=== PATIENT | male | born 1985 | race Caucasian/White ===

== ENCOUNTER 2019-02-02 20:51 | Inpatient (IN) ==
[2019-02-02 21:24] LABS: Appearance Urine Clear (Clear); Bilirubin Urine Negative (Negative); Blood Urine Negative (Negative); Color Urine Dark Yellow; Glucose Urine UA Negative (Negative); Ketones Urine Trace (Negative); Leukocyte Esterase Urine Negative (Negative); Nitrite Urine Negative (Negative); Protein Urine Negative (Negative); Specific Gravity Urine 1.027 (1.000-1.030); Urobilinogen Urine Negative (Negative)
[2019-02-02 21:37] LABS: Basophils # (auto) 0.02 K/uL (0-0.2); Basophils % (auto) 0.3 %; Eosinophils # (auto) 0.08 K/uL (0-0.5); Hematocrit (blood only) 41.8 % (42-52); Hemoglobin 14.3 g/dL (14.0-18.0); Immature Granulocytes # (auto) 0.01 K/uL (0.00-0.02); Immature Granulocytes % (auto) 0.1 %; Lymphocytes # (auto) 3.33 K/uL (1.2-3.4); Lymphocytes % (auto) 42.9 %; Mean Corpuscular Hemoglobin 31.4 pg (25-34); Mean Corpuscular Hgb Conc 34.2 g/dL (32-36); Mean Corpuscular Volume 91.9 fL (80-100); Mean Platelet Volume 9.9 fL (7.4-10.4); Monocytes # (auto) 0.68 K/uL (0.11-0.59); Monocytes % (auto) 8.8 %; Neutrophils # (auto) 3.65 K/uL (1.4-6.5); Neutrophils % (auto) 46.9 %; Platelet Count 230 K/uL (130-400); RDW Coefficient of Variation 12.9 % (11.5-14.5); RDW Standard Deviation 43.2 fL (36.4-46.3); Red Blood Count 4.55 M/uL (4.7-6.1); White Blood Count 7.77 K/uL (4.8-10.8)
[2019-02-02 21:51] LABS: Amphetamines+Metham, Urine Neg (Neg); Barbiturates, Urine Neg (Neg); Benzodiazepine, Urine Neg (Neg); Cocaine, Urine Neg (Neg); MDMA (Ecstacy), Urine Neg (Neg); Methadone, Urine Neg (Neg); Opiate, Urine Neg (Neg); Phencyclidine, Urine Neg (Neg)
[2019-02-02 21:59] LABS: Albumin Level 4.3 gm/dl (3.4-5.0); BUN Creatinine Ratio 8.6 (10-20); Calcium 9.3 mg/dl (8.5-10.1); Creatinine Clr Calc Pharmacy 112.7 ml/min; Est GFR (African American) 111.2; Est GFR (Non-African American) 95.9; Potassium 3.8 mmol/L (3.5-5.1)
[2019-02-02 22:03] LABS: Acetaminophen < 2 ug/ml (10-30); Salicylate < 1.7 mg/dl (2.8-20)
[2019-02-02 22:05] LABS: Albumin Globulin Ratio 1.1 (0.9-2); Bilirubin,Total 0.2 mg/dl (0.2-1); Thyroid Stimulating Hormone 0.762 uIu/ml (0.300-4.500); Total Protein 8.3 gm/dl (6.4-8.2)
--- NOTE | 2019-02-02 22:08 | Emergency Department Note ---
Entered by Jodie Hinojosa acting as a scribe for Frantz Jones MD History of Present Illness General Chief complaint: Mental Health Evaluation Stated complaint: MENTAL HEALTH Time Seen by Provider: 02/02/19 21:15 Source: patient History of Present Illness Onset (ago): month(s) 1 Location: head (suicidal ideation) Severity: similar to prior episodes Pain Consistency: + other (worsening) Associated symptoms: + denies other symptoms (hearing voices, abdominal pain, and swelling in legs); no nausea/vomiting The patient is a 33 year-old white M w/ PMHx of suicidal ideations who presents to the ED w/ CC of suicidal ideations beginning 1 month ago. The HPI was initially provided by the psychiatric telehealth case manager. She states that the patient called the suicide hotline and told them that he wanted to get a gun to shoot himself. The patient confirms this initial HPI. The patient adds that back in high school, he wanted to hurt himself with a knife. He notes that he is on the medication Lexapro, prescribed by Dr. Salinas. He denies any recent medication changes. He denies hearing voices, abdominal pain, nausea, and swelling in his legs. He adds that he is experiencing normal urination and bowel movements. He notes that his work is fine. He states that he uses alcohol occasionally. Home Medications Home Medications Medication Instructions Recorded Confirmed Type Ativan 1 mg PO TID PRN 02/02/19 02/02/19 History aripiprazole 5 mg PO DAILY 02/02/19 02/02/19 History escitalopram oxalate 20 mg PO DAILY 02/02/19 02/02/19 History Allergies Allergy/AdvReac Type Severity Reaction Status Date / Time No Known Allergies Allergy Unknown Verified 03/07/14 14:54 Past Med/Surg History Medical History MDD (major depressive disorder) Suicidal ideations (Chronic) Family History Other No significant family history Social History Preferred Language: Indonesian Feels Safe at Home: Yes Smoking Status: Never smoker Review of Systems See HPI for pertinent positives & negatives. and A total of 10 systems reviewed and were otherwise negative Physical Exam Vital Signs Vital Signs - 24 hr 02/02/19 20:57 02/02/19 23:23 Temperature 36.8 C Temperature Source Oral Sepsis Recent Fever Within 48 Hours No Sepsis Action Taken by Nursing No Action Required Pulse Rate 95 H Pulse Rate [Finger] 74 Pulse Rhythm Regular Pulse Rhythm [Finger] Regular Pulse Strength Normal Pulse Strength [Finger] Normal Respiratory Rate 20 16 Respiratory Effort / Characteristics Non-Labored Spontaneous Non-Labored Spontaneous Respiratory Depth Normal Normal Respiratory Pattern Regular Regular Blood Pressure 133/100 Blood Pressure [Right Arm] 145/80 H Blood Pressure Mean 111 Blood Pressure Mean [Right Arm] 101 Blood Pressure Position Sitting Blood Pressure Position [Right Arm] Sitting Pulse Oximetry 100 96 Oxygen Delivery Method Room Air Room Air GENERAL: Well nourished, NAD, non-toxic. EYE EXAM: Normal conjunctiva. PERRL, no anisocoria and EOM's grossly intact w/o pain. OROPHARYNX: Moist mucous membranes. Grossly normal dentition. NECK: Supple, no nuchal rigidity, no adenopathy, non-tender. No signs of meningismus. LUNGS: Clear to auscultation. Normal chest wall mechanics. HEART: NSR, no MRG. ABDOMEN: Abdomen soft, non-tender, normo-active bowel sounds, no masses, no rebound or guarding. BACK: No CVA TTP. SKIN: No rashes and no bruising. UPPER EXTREMITIES: Upper extremities are grossly normal. LOWER EXTREMITIES: No pitting edema. No calf pain. NEURO EXAM: A&O x3, cranial nerves II-XII grossly intact, normal speech, moves all 4 extremities on command w/o issue. PSYCH: Positive SI, no HI, no AVH, depressed mood. Course 2124: The patient was evaluated in room A5. A complete history and physical exam was performed. 2227: The patient has been accepted to [address] [place] [address]. Administered Medications Discontinued Medications Aripiprazole (Abilify) 5 mg PO NOW STA Stop: 02/02/19 23:14 Last Admin: 02/02/19 23:38 Dose: 5 mg Documented by: [id number] Escitalopram Oxalate (Lexapro Tab) 20 mg PO NOW STA Stop: 02/02/19 23:14 Last Admin: 02/02/19 23:38 Dose: 20 mg Documented by: [id number] Medical Decision Making Differential Diagnosis Differential diagnosis: Etiologies such as mood disorder, infection, hypoglycemia, electrolyte abnormalities, cardiac sources, intracerebral event, toxicologic, neurologic, as well as others were entertained. Medical Records Attestation: I reviewed the patient's medical records. Home Medications Current Medication List: was personally reviewed by me Laboratory Data Attestation: I reviewed the patient's lab results. Result diagrams: 02/02/19 21:22 02/02/19 21:22 Lab Results 02/02/19 02/02/19 02/02/19 Range/Units 21:00 21:00 21:22 WBC 7.77 (4.8-10.8) K/uL RBC 4.55 L (4.7-6.1) M/uL Hgb 14.3 (14.0-18.0) g/dL Hct 41.8 L (42-52) % MCV 91.9 (80-100) fL MCH 31.4 (25-34) pg MCHC 34.2 (32-36) g/dL RDW Std Deviation 43.2 (36.4-46.3) fL RDW Coeff of Lc 12.9 (11.5-14.5) % Plt Count 230 (130-400) K/uL MPV 9.9 (7.4-10.4) fL Immature Gran % (Auto) 0.1 % Neut % (Auto) 46.9 % Lymph % (Auto) 42.9 % [place] % (Auto) 8.8 % Eos % (Auto) 1.0 % Baso % (Auto) 0.3 % Immature Gran # (Auto) 0.01 (0.00-0.02) K/uL Neut # (Auto) 3.65 (1.4-6.5) K/uL Lymph # (Auto) 3.33 (1.2-3.4) K/uL [place] # (Auto) 0.68 H (0.11-0.59) K/uL Eos # (Auto) 0.08 (0-0.5) K/uL Baso # (Auto) 0.02 (0-0.2) K/uL Sodium (136-145) mmol/L Potassium (3.5-5.1) mmol/L Chloride (98-107) mmol/L Carbon Dioxide (21-32) mmol/L Anion Gap (3-11) BUN (7-18) mg/dl Creatinine (0.6-1.4) mg/dl Est Cr Clr Drug Dosing ml/min Est GFR ( Amer) Est GFR (Non-Af Amer) BUN/Creatinine Ratio (10-20) Glucose (70-99) mg/dl Calcium (8.5-10.1) mg/dl Total Bilirubin (0.2-1) mg/dl AST (15-37) U/L ALT (12-78) U/L Alkaline Phosphatase (45-117) U/L Total Protein (6.4-8.2) gm/dl Albumin (3.4-5.0) gm/dl Globulin (2.5-4.0) gm/dl Albumin/Globulin Ratio (0.9-2) TSH (0.300-4.500) uIu/ml Specimen Hemolysis Urine Color Dark Yellow Urine Appearance Clear (Clear) Urine pH 7.0 (4.5-7.5) Ur Specific [place] 1.027 (1.000-1.030) Urine Protein Negative (Negative) Urine Glucose (UA) Negative (Negative) Urine Ketones Trace H (Negative) Urine Blood Negative (Negative) Urine Nitrite Negative (Negative) Urine Bilirubin Negative (Negative) Urine Urobilinogen Negative (Negative) Ur Leukocyte Esterase Negative (Negative) Salicylates (2.8-20) mg/dl Urine Opiates Screen Neg (Neg) Ur Methadone, Qual Neg (Neg) Acetaminophen (10-30) ug/ml Urine Barbiturates Neg (Neg) Ur Phencyclidine (PCP) Neg (Neg) U Amphetamin/Meth Scrn Neg (Neg) MDMA (Ecstasy) Screen Neg (Neg) U Benzodiazepines Scrn Neg (Neg) Ur Cocaine Metabolite Neg (Neg) U Marijuana (THC) Screen Neg (Neg) Ethyl Alcohol mg/dL (0-3) mg/dl 02/02/19 02/02/19 02/02/19 Range/Units 21:22 21:22 21:22 WBC (4.8-10.8) K/uL RBC (4.7-6.1) M/uL Hgb (14.0-18.0) g/dL Hct (42-52) % MCV (80-100) fL MCH (25-34) pg MCHC (32-36) g/dL RDW Std Deviation (36.4-46.3) fL RDW Coeff of Lc (11.5-14.5) % Plt Count (130-400) K/uL MPV (7.4-10.4) fL Immature Gran % (Auto) % Neut % (Auto) % Lymph % (Auto) % [place] % (Auto) % Eos % (Auto) % Baso % (Auto) % Immature Gran # (Auto) (0.00-0.02) K/uL Neut # (Auto) (1.4-6.5) K/uL Lymph # (Auto) (1.2-3.4) K/uL [place] # (Auto) (0.11-0.59) K/uL Eos # (Auto) (0-0.5) K/uL Baso # (Auto) (0-0.2) K/uL Sodium 140 (136-145) mmol/L Potassium 3.8 (3.5-5.1) mmol/L Chloride 104 (98-107) mmol/L Carbon Dioxide 29 (21-32) mmol/L Anion Gap 7.0 (3-11) BUN 9 (7-18) mg/dl Creatinine 1.01 (0.6-1.4) mg/dl Est Cr Clr Drug Dosing 112.7 ml/min Est GFR ( Amer) 111.2 Est GFR (Non-Af Amer) 95.9 BUN/Creatinine Ratio 8.6 L (10-20) Glucose 106 H (70-99) mg/dl Calcium 9.3 (8.5-10.1) mg/dl Total Bilirubin 0.2 (0.2-1) mg/dl AST 36 (15-37) U/L ALT 61 (12-78) U/L Alkaline Phosphatase 76 (45-117) U/L Total Protein 8.3 H (6.4-8.2) gm/dl Albumin 4.3 (3.4-5.0) gm/dl Globulin 4.0 (2.5-4.0) gm/dl Albumin/Globulin Ratio 1.1 (0.9-2) TSH 0.762 (0.300-4.500) uIu/ml Specimen Hemolysis Urine Color Urine Appearance (Clear) Urine pH (4.5-7.5) Ur Specific [place] (1.000-1.030) Urine Protein (Negative) Urine Glucose (UA) (Negative) Urine Ketones (Negative) Urine Blood (Negative) Urine Nitrite (Negative) Urine Bilirubin (Negative) Urine Urobilinogen (Negative) Ur Leukocyte Esterase (Negative) Salicylates < 1.7 L (2.8-20) mg/dl Urine Opiates Screen (Neg) Ur Methadone, Qual (Neg) Acetaminophen < 2 L (10-30) ug/ml Urine Barbiturates (Neg) Ur Phencyclidine (PCP) (Neg) U Amphetamin/Meth Scrn (Neg) MDMA (Ecstasy) Screen (Neg) U Benzodiazepines Scrn (Neg) Ur Cocaine Metabolite (Neg) U Marijuana (THC) Screen (Neg) Ethyl Alcohol mg/dL < 3.0 (0-3) mg/dl Blood Pressure Blood Pressure Findings: Elevated blood pressure Blood Pressure Disposition: further management by hospitalist MDM Narrative The patient is a 33 year-old white M w/ PMHx of suicidal ideations who presents to the ED w/ CC of suicidal ideations beginning 1 month ago. Patient was seen and evaluated the bedside. The patient did present with concern for using a gun to shoot himself. The patient is a prior history of SI with attempts. The patient endorses SI but no HI or AVH. The patient did a blood work completed and was deemed medically clear. The patient was accepted to [facility]. the patient was admitted for inpatient psychiatric treatment. Impression & Plan Suicidal ideations, Depression Discharge Plan Visit Data Chief Complaint: Mental Health Evaluation Stated Complaint: MENTAL HEALTH ED Provider: Frantz Jones Discharge Problem: Suicidal ideations, Depression Patient Disposition: Admitted As Inpatient Discharge Instructions Interventions: ED Discharge Assessment Last Done: 02/02/19 23:57 Discharge Problem: Depression Qualifiers: Depression Type: unspecified Qualified Code(s): F32.9 - Major depressive disorder, single episode, unspecified The mandyibe's documentation has been prepared under my direction and personally reviewed by me in its entirety. I confirm that the note above accurately reflects all work, treatment, procedures, and medical decision making performed by me.
[2019-02-02] MEDS ORDERED: ESCITALOPRAM OXALATE 20 MG TAB PO STA (23:13)
[2019-02-02] MEDS ORDERED: ARIPiprazole 5 MG TAB PO STA (23:13)
[2019-02-02 23:24] VITALS: O2SAT 96
[2019-02-03] MEDS ORDERED: ACETAMINOPHEN 325 MG TAB PO PRN (00:52)
[2019-02-03] MEDS ORDERED: SODIUM CHLORIDE 0.65% NA SOLN 45 ML (OCEAN) PRN (00:52)
[2019-02-03] MEDS ORDERED: MAGNESIUM HYDROXIDE SUSP 30 ML UDC PO PRN (00:52)
[2019-02-03] MEDS ORDERED: BISMUTH SUBSALICYLATE PER ML OMNICELL CHARGE PO PRN (00:52)
[2019-02-03] MEDS ORDERED: ALUMINUM/MAGNESIUM SUSP 30 ML UDC PO PRN (00:52)
--- NOTE | 2019-02-03 12:07 | History & Physical ---
Date of Service February 03, 2019 Impression / Recommendations Impression 33-year-old gentleman with history of depression and anxiety since high school. Unfortunately it sounds that he has felt unaccepted and perhaps defective since that time associated with his sexual orientation and the treatment that he has received from others. He denies feeling intrinsically guilty or self-critical however he does demonstrate strong rejection sensitivity and has developed some avoidance behaviors suggesting social anxiety component. Additionally he experiences panic attacks which has included some agoraphobic behavior with difficulty attending his work shifts related to his anxiety. He tends to ruminate about the past and second guesses decision making. While he describes primarily depression he also describes intervals of several hours when he feels elevated above a normal mood range and a diagnosis of cyclothymic mood disorder should be entertained. Acute stressors include increased work schedule, decreased access to parents, and possibly 3-year anniversary of of gra ndmother pending. He reports some benefit from historical Lexapro and Abilify treatment from PCP. He has not participated in psychotherapy. Secondary to worsening suicidal impulse to shoot himself, inpatient psychiatric hospitalization is presently the least restrictive and most appropriate level of care for provision of safety while he receives additional treatment. (1) MDD (major depressive disorder): 01/26/2019 -Patient admitted on a voluntary status on suicide checks to the locked environment of the behavioral health unit -He will be expected to participate in unit programming as appropriate -Patient will require outpatient psychotherapy and psychiatric referrals prior to discharge -Guns are locked and have been secured by parents at home -As Celexa and Lexapro have been insufficiently effective, will reduce Lexapro to 10 mg tonight and then discontinue and substitute Zoloft titration as alternative. He will start Zoloft 25 mg today, 50 mg tomorrow, then 100 mg daily and will continue titration ending indication and tolerability. Common risks and benefits of the SSRI were reviewed and patient accepted the intervention. -As he perceives historically some therapeutic benefit from the Abilify augmentation will defer any changes to that for the time being. Lab order for fasting lipid pane and glucose for metabolic monitoring on atypical antipsychotic. Aims 0 today -Psychoeducation provided regarding possibility of underlying mild cyclic mood disorder. For mood augmentation, discussed risks and benefits of Lamictal titration which may help with some of his emotional reactivity as well. This included discussion of risk for Bear-Angel syndrome and need for regular medication compliance. Patient was agreeable and will start Lamictal 25 mg nightly titrating in the standard fashion Present on Admission?: Yes (2) Suicidal ideations: 02/03/2019 -As above, patient admitted on suicide checks to the controlled environment of the behavioral health unit where he will receive pharmacotherapy and psychotherapy. At time of admission he denies intent for self-harm and able to convincingly contract for safety in the hospital however he is not able to contract for safety outside of the hospital. -He identifies his family, particularly his mother, as strongly protective against self injury. He has no history of self-harm but does have a history of one instance of para suicidal behavior Present on Admission?: Yes (3) Generalized anxiety disorder: 02/03/2019 -Mixed anxiety symptomatology with free-floating excessive worry, features of social anxiety and panic attacks -Zoloft trial as above -May get some benefit from the Lamictal titration off label Present on Admission?: Yes Inventory Assets Strengths: He is help seeking and compliant with his medications Needs: Provision for safety and medication adjustment Risk Factors Assessment Male: Yes : Yes Do You Have Access To A Gun?: No (Guns at home but secured by parents) Health Problems: No Mental Health Diagnoses: Yes Substance Use Disorders: No Previous Attempt: No Family History of Suicide: No Previous Psychiatric Hospitalization: No Hopelessness: Yes Smoker: No Protective Factors Assessment Anglican Beliefs: No : No Responsible for Young Children: No Employed: No ([employer] @ [employer]) Stable Relationships: Yes (Parents) Supportive Family: Yes Psychiatric History Identifying Data KENIA ANN is a 33-year-old M who currently lives locally with parents. He has a history of depression treated by his PCP, and was admitted on 02/02/19 23:38 on a 201 voluntary commitment for worsening depression and suicidal ideation. he was admitted through the [facility] ER. Chief Complaint "I've been feeling hopeless but I do not want to do it". History of Present Illness Patient presented to the ER last evening complaining of worsening suicidal ideations beginning about 1 month ago. Called the suicide hotline and told that he wanted to get a gun to shoot himself which he confirmed in the ER. He reported that he was taking his prescribed psychotropics from his PCP, Abilify 5 mg daily and Lexapro 20 mg daily. Apparently he also has an Ativan 1 mg 3 times daily as needed prescription that he has been using infrequently. He was unable to identify acute stressors in the ER. He was medically cleared and accepted for voluntary admission to the behavioral health unit. On interview today, psychosocial stressors coming to the fore include a history of bullying in high school for his sexual orientation, increasing his work schedule from 25 hours weekly at [employer] to 40 hours weekly in effort to secure health insurance which not only increases stress but also has been a trigger for interpersonal social anxiety and has diminished his access to his parents who are his primary source of support as they are typically in bed by the time that he gets off of his 12-9 shift. While he denies negative self-image he does describe a lot of reflexive worry that others are judging him unfavorably to the point that he tends to avoid social contact. He does a great deal of rumination and describes second guessing historical decisions wondering if things could have been different. He describes onset of anxiety in middle school which he seems to attribute to his homosexuality and bullying at school. He describes a lot of free-floating anxiety, difficulty concentrating, and sleep latency associated with anxiety. He describes panic attacks that are triggered by situational stressors such as work and not out of the blue. On he has been treated with his antidepressants for 2-3 years by PCP which she found initially helpful but recently insufficiently effective. Energy has been low, interest declining, sleep often times latent estimating 4-5 hours nightly. He denies crying spells. Appetite variable. He reports a 50 pound weight gain in the last 2-3 years. Irritability can be significant at times but denies violence. He has experienced worsening suicidal ideation for the past month feeling more hopeless and fantasizing about shooting himself with a gun. He denies any acts of furtherance. He expresses to me that he does not want to hurt himself and maintains hopefulness that he can feel better which is why he has reached out for help. He denies a history of suicide attempt however he did have some para- suicidal behavior around the age of 13 when he held a knife to his chest when home alone which she later disclosed to a friend and saw a guidance counselor x2 but felt it was of no benefit (states he felt the guidance counselor did not take him seriously. "Like it was a big joke to him.") While he denies symptoms of florid kelly he does report times when he feels elevated, talkative, speech more rapid, more likely to spend money, more energized, thoughts racing however these moments tend to last hours and not days. He denies a history of hallucinations or delusions. He denies a history of dissociation. He denies a historical diagnosis or concern for ADHD in childhood. Past Psychiatric History Previous Psych History: No prior psychiatric contact. First sought treatment from PCP around 2015 Current Psychiatric Diagnosis: Depression Outpatient Services: None Previous Psych Admissions: None Do You Have Access To A Gun?: No (Guns at home but secured by parents) History of Previous Suicide Attempt: No (Held a knife to chest age 13. Denies history of self injury) Describe Attempts in the Past: Ideations, no hx of attempts Past Medication Trials: First medication Celexa converted to Lexapro secondary to lack of efficacy. Abilify started approximately 2016 for mood augmentation by PCP Past Head Trauma/Neuro History History of Concussion/Seizure: No Allergies Allergy/AdvReac Type Severity Reaction Status Date / Time No Known Allergies Allergy Unknown Verified 03/07/14 14:54 Home Medications Home Medications Medication Instructions Recorded Confirmed Type aripiprazole 5 mg PO HS 02/02/19 02/04/19 History escitalopram oxalate 20 mg PO HS 02/02/19 02/04/19 History lorazepam 1 mg PO TID PRN 02/02/19 02/04/19 History Family History Family History of: Depression (He believes his mother is treated with Celexa) Family Mental Health History Comment: mother Alcohol History Hx of Alcohol Use Over the Past 12 Months: Yes (social, not often) AUDIT Total Score: 2 Smoking Use Have You Smoked or Used Tobacco Products in the Last 30 Days: No Smoking Status: Never smoker Substance History Hx of Prescription Med Misuse Over the Past 12 Months: No Hx of Over the Counter Med Misuse Over the Past 12 Months: No Hx of Inhalent Misuse Over the Past 12 Months: No Hx of Organic Substance Use Over the Past 12 Months: No Hx of Illegal Substances/Street Drug Use Over Past 12 Months: No Problems as a Result of Past Substance Use: None Identified Personal History Living Arrangements: Home (Lives with parents) Childhood: Describes supportive parents. 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 Has been with [employer] 17+ years.) Marital Status: Single (Reports last relationship approximately 3 years ago and did poorly) Number Of Children: 0 Beliefs That Will Affect Care: None Current Legal Problems: No Hx Legal Problems: No Hx Traumatic Life Events: Yes Psychological Trauma History Comment: Bullying in school of grandmother was a large support for him approximately 2015 Patient History Medical History MDD (major depressive disorder) (Acute) Suicidal ideations (Acute) Surgical History History of appendectomy (Resolved) Family History Other No significant family history Social History Preferred Language: Bermudian Communication Ability: Effective Mother Baby Rn Required: No Beliefs That Will Affect Care: None Feels Safe at Home: Yes Smoking Status: Never smoker Review of Systems Constitutional: as per Subjective / HPI Respiratory: no problem reported Cardiovascular: no problem reported Gastrointestinal: + nausea Neurologic: no problem reported Psychiatric: as per Subjective / HPI 10 point review of systems otherwise negative except as per HPI Physical Exam Psychiatric: Orientation: alert, oriented x 3 and cooperative Apperance: appropriately dressed and + disheveled Eye Contact: + fair eye contact M otor Behavior: steady gait and station and no abnormal motor movements Speech: normal rate/rhythm/volume of speech; no pressured speech Affect: + depressed affect, + anxious affect and mood congruent with affect Mood: + depressed mood Thought Process: goal directed thought process and linear/logical thought process Thought Content: reality based without delusions and + hopelessness Suicidal Thoughts: denies suicidal intent; + reports suicidal thoughts and + reports suicidal plan Homicidal Thoughts: denies homicidal thoughts Hallucinations: no auditory hallucinations, no visual hallucinations and no tactile hallucinations Cognition: recent memory grossly intact, remote memory grossly intact, attention grossly intact and language grossly intact Estimated Intelligence: average estimated intelligence Insight: + fair insight Judgement: + fair judgement Vital Signs (Past 24 Hours): Last Vital Signs Temp 36.6 C 02/03/19 06:56 Pulse 73 02/03/19 06:57 Resp 18 02/03/19 06:56 BP 120/79 02/03/19 06:57 Pulse Ox 96 02/02/19 23:23 Results & Data Laboratory Results Laboratory Results - last 24 hr 02/02/19 02/02/19 02/02/19 21:00 21:00 21:22 WBC 7.77 RBC 4.55 L Hgb 14.3 Hct 41.8 L MCV 91.9 MCH 31.4 MCHC 34.2 RDW Std Deviation 43.2 RDW Coeff of Lc 12.9 Plt Count 230 MPV 9.9 Immature Gran % (Auto) 0.1 Neut % (Auto) 46.9 Lymph % (Auto) 42.9 [place] % (Auto) 8.8 Eos % (Auto) 1.0 Baso % (Auto) 0.3 Immature Gran # (Auto) 0.01 Neut # (Auto) 3.65 Lymph # (Auto) 3.33 Valencia # (Auto) 0.68 H Eos # (Auto) 0.08 Baso # (Auto) 0.02 Sodium Potassium Chloride Carbon Dioxide Anion Gap BUN Creatinine Est Cr Clr Drug Dosing Est GFR ( Amer) Est GFR (Non-Af Amer) BUN/Creatinine Ratio Glucose Calcium Total Bilirubin AST ALT Alkaline Phosphatase Total Protein Albumin Globulin Albumin/Globulin Ratio TSH Specimen Hemolysis Urine Color Dark Yellow Urine Appearance Clear Urine pH 7.0 Ur Specific [place] 1.027 Urine Protein Negative Urine Glucose (UA) Negative Urine Ketones Trace H Urine Blood Negative Urine Nitrite Negative Urine Bilirubin Negative Urine Urobilinogen Negative Ur Leukocyte Esterase Negative Salicylates Urine Opiates Screen Neg Ur Methadone, Qual Neg Acetaminophen Urine Barbiturates Neg Ur Phencyclidine (PCP) Neg U Amphetamin/Meth Scrn Neg MDMA (Ecstasy) Screen Neg U Benzodiazepines Scrn Neg Ur Cocaine Metabolite Neg U Marijuana (THC) Screen Neg Ethyl Alcohol mg/dL 02/02/19 02/02/19 02/02/19 21:22 21:22 21:22 WBC RBC Hgb Hct MCV MCH MCHC RDW Std Deviation RDW Coeff of Lc Plt Count MPV Immature Gran % (Auto) Neut % (Auto) Lymph % (Auto) Valencia % (Auto) Eos % (Auto) Baso % (Auto) Immature Gran # (Auto) Neut # (Auto) Lymph # (Auto) Valencia # (Auto) Eos # (Auto) Baso # (Auto) Sodium 140 Potassium 3.8 Chloride 104 Carbon Dioxide 29 Anion Gap 7.0 BUN 9 Creatinine 1.01 Est Cr Clr Drug Dosing 112.7 Est GFR ( Amer) 111.2 Est GFR (Non-Af Amer) 95.9 BUN/Creatinine Ratio 8.6 L Glucose 106 H Calcium 9.3 Total Bilirubin 0.2 AST 36 ALT 61 Alkaline Phosphatase 76 Total Protein 8.3 H Albumin 4.3 Globulin 4.0 Albumin/Globulin Ratio 1.1 TSH 0.762 Specimen Hemolysis Urine Color Urine Appearance Urine pH Ur Specific [place] Urine Protein Urine Glucose (UA) Urine Ketones Urine Blood Urine Nitrite Urine Bilirubin Urine Urobilinogen Ur Leukocyte Esterase Salicylates < 1.7 L Urine Opiates Screen Ur Methadone, Qual Acetaminophen < 2 L Urine Barbiturates Ur Phencyclidine (PCP) U Amphetamin/Meth Scrn MDMA (Ecstasy) Screen U Benzodiazepines Scrn Ur Cocaine Metabolite U Marijuana (THC) Screen Ethyl Alcohol mg/dL < 3.0 Current Inpatient Medications Current Inpatient Medications: Current Inpatient Medications Acetaminophen (Tylenol) 650 mg PO Q4H PRN PRN Reason: Headache or Minor Fever Stop: 03/05/19 00:51 Al Hydrox/Mg Hydrox/Simethicone (Maalox) 30 ml PO Q4H PRN PRN Reason: GI Upset Stop: 03/05/19 00:51 Aripiprazole (Abilify) 5 mg PO HS NA Stop: 03/05/19 21:59 Bismuth Subsalicylate (Kaopectate) 15 ml PO PRN PRN PRN Reason: Loose Stool Stop: 03/05/19 00:51 Escitalopram Oxalate (Lexapro Tab) 20 mg PO HS NA Stop: 03/05/19 21:59 Hydroxyzine HCl (Vistaril) 50 mg PO HSZ PRN PRN Reason: Insomnia Stop: 03/05/19 00:51 Hydroxyzine HCl (Vistaril) 25 mg PO Q4H PRN PRN Reason: Anxiety Stop: 03/05/19 00:51 Magnesium Hydroxide (Milk Of Magnesia) 30 ml PO DAILY PRN PRN Reason: Constipation Stop: 03/05/19 00:51 Sodium Chloride (Larue Nasal) 1 - 2 sprays NA PRN PRN PRN Reason: Nasal Dryness/Congestion Stop: 03/05/19 00:51 CPT Code CPT Code Initial Hospital Care: 89631
[2019-02-03] MEDS ORDERED: LORazepam 1 MG TAB PO PRN (12:57)
[2019-02-03] MEDS ORDERED: SERTRALINE HCL 50 MG TABLET PO ONE (13:45)
[2019-02-03] MEDS: ARIPiprazole 5 MG TAB PO SCH (21:15)
[2019-02-03] MEDS: lamoTRIgine 25 MG TAB PO SCH (21:16)
[2019-02-03] MEDS ORDERED: ESCITALOPRAM OXALATE 10 MG TAB PO SCH (22:00)
[2019-02-03] MEDS ORDERED: ESCITALOPRAM OXALATE 20 MG TAB PO SCH (22:00)
[2019-02-04 07:44] LABS: Glucose Fasting 93 mg/dl (70-99)
[2019-02-04 07:53] LABS: Chol HDL Ratio 7; Cholesterol 220 mg/dl (0-200); HDL Cholesterol 32 mg/dl; LDL Cholesterol Calculated 147 mg/dl; Triglycerides 203 mg/dl (0-150); VLDL Cholesterol 41 mg/dl
[2019-02-04] MEDS ORDERED: SERTRALINE HCL 50 MG TABLET PO SCH (09:00)
[2019-02-04] MEDS ORDERED: ARIPiprazole 5 MG TAB PO SCH (09:00)
--- NOTE | 2019-02-04 16:43 | Psychiatric Progress Note ---
Date of Service February 04, 2019 Impression / Recommendations Impression 33-year-old gentleman with history of depression and anxiety since high school. Unfortunately it sounds that he has felt unaccepted and perhaps defective since that time associated with his sexual orientation and the treatment that he has received from others. He denies feeling intrinsically guilty or self-critical however he does demonstrate strong rejection sensitivity and has developed some avoidance behaviors suggesting social anxiety component. Additionally he experiences panic attacks which has included some agoraphobic behavior with difficulty attending his work shifts related to his anxiety. He tends to ruminate about the past and second guesses decision making. While he describes primarily depression he also describes intervals of several hours when he feels elevated above a normal mood range and a diagnosis of cyclothymic mood disorder should be entertained. Acute stressors include increased work schedule, decreased access to parents, and possibly 3-year anniversary of of gra ndmother pending. He reports some benefit from historical Lexapro and Abilify treatment from PCP. He has not participated in psychotherapy. Secondary to worsening suicidal impulse to shoot himself, inpatient psychiatric hospitalization is presently the least restrictive and most appropriate level of care for provision of safety while he receives additional treatment. (1) MDD (major depressive disorder): 01/26/2019 -Patient admitted on a voluntary status on suicide checks to the locked environment of the behavioral health unit -He will be expected to participate in unit programming as appropriate -Patient will require outpatient psychotherapy and psychiatric referrals prior to discharge -Guns are locked and have been secured by parents at home -As Celexa and Lexapro have been insufficiently effective, will reduce Lexapro to 10 mg tonight and then discontinue and substitute Zoloft titration as alternative. He will start Zoloft 25 mg today, 50 mg tomorrow, then 100 mg daily and will continue titration ending indication and tolerability. Common risks and benefits of the SSRI were reviewed and patient accepted the intervention. -As he perceives historically some therapeutic benefit from the Abilify augmentation will defer any changes to that for the time being. Lab order for fasting lipid pane and glucose for metabolic monitoring on atypical antipsychotic. Aims 0 today -Psychoeducation provided regarding possibility of underlying mild cyclic mood disorder. For mood augmentation, discussed risks and benefits of Lamictal titration which may help with some of his emotional reactivity as well. This included discussion of risk for Bear-Angel syndrome and need for regular medication compliance. Patient was agreeable and will start Lamictal 25 mg nightly titrating in the standard fashion 02/04 -Patient describing a dramatic improvement in mood and hopefulness following admission. Probably cannot overvalue the importance of feeling accepted and having an opportunity for some validation outside of his immediate family which was illuminated to him and appeared to resonate -Will complete the antidepressant cross taper with discontinuation of Lexapro and increase of Zoloft to 100 mg tomorrow morning -Reviewed mildly elevated total cholesterol and triglycerides. Advised dietary modification and follow-up with PCP. He does have a family history of dyslipidemia in his father. (2) Suicidal ideations: 02/03/2019 -As above, patient admitted on suicide checks to the controlled environment of the behavioral health unit where he will receive pharmacotherapy and psychotherapy. At time of admission he denies intent for self-harm and able to convincingly contract for safety in the hospital however he is not able to contract for safety outside of the hospital. -He identifies his family, particularly his mother, as strongly protective against self injury. He has no history of self-harm but does have a history of one instance of para suicidal behavior 02/04 -Denies suicidal ideation today (3) Generalized anxiety disorder: 02/03/2019 -Mixed anxiety symptomatology with free-floating excessive worry, features of social anxiety and panic attacks -Zoloft trial as above -May get some benefit from the Lamictal titration off label 02/04 -Anxiety showing some interval improvement today -He does have access to his home dose of Ativan prn which he has not used Inventory Assets Strengths: He is help seeking and compliant with his medications Needs: Provision for safety and medication adjustment Risk Factors Assessment Male: Yes : Yes Do You Have Access To A Gun?: No (Guns at home but secured by parents) Health Problems: No Mental Health Diagnoses: Yes Substance Use Disorders: No Previous Attempt: No Family History of Suicide: No Previous Psychiatric Hospitalization: No Hopelessness: Yes Smoker: No Protective Factors Assessment Moravian Beliefs: No : No Responsible for Young Children: No 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 It's amazing but I don't feel depressed". Review of Systems Sleep Information Total Hours of Sleep: 8.25 Sleep Comments: pt NPO during the night. pt on q-15 minute checks Meal Information Percent Meal Consumed - Breakfast: 100 Percent Meal Consumed - Lunch: 100 Percent Meal Consumed - Dinner: 100 Subjective Subjective Patient was seen & assessed and interval progress reviewed with treatment team. staff report good adjustment to unit. Slept well. Appearing less anxious. Compliant with medications. Participating in unit programming effectively. On interview this morning he describes a rather dramatic reduction in hopelessness. Reports he has not experienced any recurrence of suicidal thoughts or impulses since admission. Feeling much less depressed. Describes therapeutic benefit from group exercises. Denies tolerability concerns so far regarding initiation of Lamictal and cross taper from Lexapro to sertraline. He is amenable to outpatient psychiatric and therapy referrals. Physical Exam Psychiatric Orientation: alert, oriented x 3 and cooperative Apperance: appropriately dressed and appropriately groomed Eye Contact: good eye contact Motor Behavior: steady gait and station and no abnormal motor movements Speech: normal rate/rhythm/volume of speech Affect: mood congruent with affect calm. skin still flushes during conversation "not depressed" Thought Process: goal directed thought process and linear/logical thought process Thought Content: reality based without delusions; no hopelessness Suicidal Thoughts: denies suicidal thoughts and denies suicidal intent Homicidal Thoughts: denies homicidal thoughts Hallucinations: no auditory hallucinations, no visual hallucinations and no tactile hallucinations Cognition: recent memory grossly intact, remote memory grossly intact, attention grossly intact and language grossly intact Estimated Intelligence: average estimated intelligence Insight: + fair insight Judgement: + fair judgement Vital Signs (Past 24 Hours) Last Vital Signs Temp 36.6 C 02/04/19 07:00 Pulse 82 02/04/19 07:00 Resp 18 02/04/19 07:00 BP 122/86 02/04/19 07:00 Pulse Ox 96 02/02/19 23:23 Results & Data Laboratory Results Laboratory Results - last 24 hr 02/04/19 06:58 Fasting Glucose 93 Triglycerides 203 H Cholesterol 220 H LDL Cholesterol, Calc 147 VLDL Cholesterol, Calc 41 HDL Cholesterol 32 Cholesterol/HDL Ratio 7 Current Inpatient Medications Current Inpatient Medications: Current Inpatient Medications Acetaminophen (Tylenol) 650 mg PO Q4H PRN PRN Reason: Headache or Minor Fever Stop: 03/05/19 00:51 Al Hydrox/Mg Hydrox/Simethicone (Maalox) 30 ml PO Q4H PRN PRN Reason: GI Upset Stop: 03/05/19 00:51 Aripiprazole (Abilify) 5 mg PO HS NA Stop: 03/05/19 21:59 Last Admin: 02/03/19 21:15 Dose: 5 mg Documented by: Bismuth Subsalicylate (Kaopectate) 15 ml PO PRN PRN PRN Reason: Loose Stool Stop: 03/05/19 00:51 Hydroxyzine HCl (Vistaril) 50 mg PO HSZ PRN PRN Reason: Insomnia Stop: 03/05/19 00:51 Hydroxyzine HCl (Vistaril) 25 mg PO Q4H PRN PRN Reason: Anxiety Stop: 03/05/19 00:51 Lamotrigine (Lamictal) 25 mg PO HS NA Stop: 03/05/19 21:59 Last Admin: 02/03/19 21:16 Dose: 25 mg Documented by: Lorazepam (Ativan) 1 mg PO TID PRN PRN Reason: Anxiety Stop: 03/05/19 12:56 Magnesium Hydroxide (Milk Of Magnesia) 30 ml PO DAILY PRN PRN Reason: Constipation Stop: 03/05/19 00:51 Sertraline HCl (Zoloft) 100 mg PO QAM NA Stop: 03/07/19 08:59 Sodium Chloride ([place] Nasal) 1 - 2 sprays NA PRN PRN PRN Reason: Nasal Dryness/Congestion Stop: 03/05/19 00:51 Mental Health & Subst Abuse Tx Psychiatrist Name of Psychiatrist: Cecilia [facility] Psychiatrist's Psychiatric Appointment Comment: [address] [place] [address] Jewelry Racker Name of Jewelry Racker: none Post Discharge Appointments Primary Care Physician Name Of Family Doctor: [facility] Time of Appointment with PCP: Follow up as needed. Provider Appointment Comment: [place] [address] Contact Information Discharge Discharge Address: [address] [place] [address] [place] [address] CPT Code CPT Code 28909
[2019-02-04] MEDS: lamoTRIgine 25 MG TAB PO SCH (21:24)
[2019-02-04] MEDS: ARIPiprazole 5 MG TAB PO SCH (21:24)
[2019-02-05 06:47] VITALS: TEMP 98.1
[2019-02-05] MEDS ORDERED: SERTRALINE HCL 100 MG TABLET PO SCH (09:00)
[2019-02-05 13:29] VITALS: BP 138/85; PULSE 74
--- NOTE | 2019-02-05 13:50 | Discharge Summary ---
Date of Service February 05, 2019 History of Present Illness Patient presented to the ER last evening complaining of worsening suicidal ideations beginning about 1 month ago. Called the suicide hotline and told that he wanted to get a gun to shoot himself which he confirmed in the ER. He reported that he was taking his prescribed psychotropics from his PCP, Abilify 5 mg daily and Lexapro 20 mg daily. Apparently he also has an Ativan 1 mg 3 times daily as needed prescription that he has been using infrequently. He was unable to identify acute stressors in the ER. He was medically cleared and accepted for voluntary admission to the behavioral health unit. On interview today, psychosocial stressors coming to the fore include a history of bullying in high school for his sexual orientation, increasing his work schedule from [address] at [employer] to 40 hours weekly in effort to secure health insurance which not only increases stress but also has been a trigger for interpersonal social anxiety and has diminished his access to his parents who are his primary source of support as they are typically in bed by the time that he gets off of his 12-9 shift. While he denies negative self-image he does describe a lot of reflexive worry that others are judging him unfavorably to the point that he tends to avoid social contact. He does a great deal of rumination and describes second guessing historical decisions wondering if things could have been different. He describes onset of anxiety in middle school which he seems to attribute to his homosexuality and bullying at school. He describes a lot of free-floating anxiety, difficulty concentrating, and sleep latency associated with anxiety. He describes panic attacks that are triggered by situational stressors such as work and not out of the blue. On he has been treated with his antidepressants for 2-3 years by PCP which she found initially helpful but recently insufficiently effective. Energy has been low, interest declining, sleep often times latent estimating 4-5 hours nightly. He denies crying spells. Appetite variable. He reports a 50 pound weight gain in the last 2-3 years. Irritability can be significant at times but denies violence. He has experienced worsening suicidal ideation for the past month feeling more hopeless and fantasizing about shooting himself with a gun. He denies any acts of furtherance. He expresses to me that he does not want to hurt himself and maintains hopefulness that he can feel better which is why he has reached out for help. He denies a history of suicide attempt however he did have some para- suicidal behavior around the age of 13 when he held a knife to his chest when home alone which she later disclosed to a friend and saw a guidance counselor x2 but felt it was of no benefit (states he felt the guidance counselor did not take him seriously. "Like it was a big joke to him.") While he denies symptoms of florid kelly he does report times when he feels elevated, talkative, speech more rapid, more likely to spend money, more energized, thoughts racing however these moments tend to last hours and not days. He denies a history of hallucinations or delusions. He denies a history of dissociation. He denies a historical diagnosis or concern for ADHD in childhood. Physical Exam Psychiatric Orientation: alert, oriented x 3 and cooperative (and pleasant) Apperance: appropriately dressed, appropriately groomed and appeared stated age Eye Contact: good eye contact Motor Behavior: steady gait and station and no abnormal motor movements Speech: normal rate/rhythm/volume of speech Affect: + blunted affect and mood congruent with affect Mood: no depressed mood ("A lot better actually") Thought Process: goal directed thought process, linear/logical thought process, clear/coherent thought process and thought association intact Thought Content: reality based without delusions; no hopelessness Suicidal Thoughts: denies suicidal thoughts, denies suicidal plan and denies suicidal intent Homicidal Thoughts: denies homicidal thoughts Hallucinations: no auditory hallucinations and no visual hallucinations Cognition: remote memory grossly intact, attention grossly intact and language grossly intact Estimated Intelligence: consistent with education level Insight: good insight Judgement: good judgement Vital Signs (Past 24 Hours) Last Vital Signs Temp 36.7 C 02/05/19 13:26 Pulse 74 02/05/19 13:26 Resp 18 02/05/19 13:26 BP 138/85 02/05/19 13:26 Pulse Ox 96 02/05/19 13:26 Principal Diagnosis - Generalized Anxiety Disorder - Major Depressive Disorder Psychiatric Data 33-year-old male admitted voluntarily for inpatient psychiatric treatment on 02/02/19 due to reports of worsening depression with suicidal plan to shoot himself. Pt presented to the ED after calling the suicide hotline, having verbalized a thought to "get a gun to shoot himself." Pt reports compliance with his psychotropic medications, but has a long history of psychosocial stressors in addition to recent increase in his hours at work. Pt reported a significant history of bullying in high school, which led to desire to isolate. Pt reported that he did not feel accepted in school due to his sexual orientation, and has struggled with anxiety and depression for decades. Pt reported SI for a month prior to admission. Upon admission, patient was agreeable to medication adjustments, including: cross-taper of escitalopram in favor of trial of sertraline. Pt was also started on lamotrigine due to perceived cyclic pattern to mood disorder. By time of discharge, patient was taking 100mg of sertraline and remained on standard taper of lamotrigine starting at 25mg daily. Pt attended group programming and participated appropriately. He was agreeable to involving his parents, whom he lives with, in a family meeting to discuss discharge and safety planning. He was agreeable to referrals for outpatient psychiatric treatment - planning to be seen at [facility] for medication management and expected to see Rigo Scott for therapy. A ppointments have been scheduled to allow for timely follow-up after discharge. By time of discharge, the patient reported resolution of SI, and is found to be future oriented in conversation. He is able to verbalize a safety plan and completed a written one to take with him on discharge. This safety plan was personally reviewed by this provider. Based on review of patient's case and their current presentation, risk of harm to self is no longer perceived to be acute. Management of symptoms on an outpatient basis seems the most appropriate and least restrictive setting. Pt seems appropriate for discharge with recommendation for consistent follow-up with outpatient psychiatric prescriber and therapist. Pt verbalized understanding of discharge plan reviewed and is agreeable with plan to be discharged home today. Day of Discharge Assessment Patient's case was reviewed and discussed during treatment team. Staff report the patient had made significant improvements over the weekend, and his affect has improved. Patient participated in a family meeting with his parents, who were supportive. It was confirmed that firearms have been secured, as this was the patient's reported suicide plan. Pt has been denying suicidal ideation and requesting discharge today. Pt was seen today to assess readiness for discharge. Pt states, "things are actually a lot better. I know it's unusual, but maybe the medications are working faster than usual." We reviewed coping strategies he has been working on during this admission as well as likelihood than any benefits observed from medications would continue to be more apparent over the next few weeks. Pt states that he has been tolerating medication adjustments, and denies any perceived side effects. Pt states, "and honestly, I haven't been having any dark thoughts." Pt reports his family meeting went well yesterday. He states his parents are supportive, and eager for him to return home. He denies any concerns voiced by his parents about discharge. Reviewed with patient anticipated aftercare plan, with medication management at [facility] and therapy with Rigo Scott. Pt states he is eager to attend these appointments. Pt denies any significant concerns at this time. He is requesting discharge home today, which seems appropriate given level of support at home, resolution of SI, improvement in mood, and tolerance of medication adjustments. At this time, patient is not perceived to be at acute risk of harm to self, and it is appropriate for treatment to continue in a lesser restrictive outpatient setting. Discharge plan was reviewed with patient, who verbalized understanding and is agreeable with discharge home today. ROS: Constitutional: denied Cardiovascular: denied Respiratory: denied Gastrointestinal: denied Neurological: denied Psychiatric: denies symptoms other than stated above Total of at least 10 systems reviewed, pertinent positives as above and in HPI. Transition of Care Transition Of Care Record: was reviewed with the patient Advance Directives Advance Directives Information Provided: Yes Advance Directives: No Mental Health Advance Directive: No Advance Directives on File: No Living Will: No Power of Commercial Teller: No Advance Directives Reason:: Declines as Mental Health Visit. Risk Factors Assessment Presenting risk factors reviewed on discharge. Precipitating stressors mitigated by: admission for inpatient psychiatric observation and treatment, appropriate adjustments to medications to target symptoms, attendance of therapeutic treatment groups, development of healthy and effective coping strategies, involvement of outpatient supports, completion of a safety plan, confirmation of guns and weapons being secured, and education on diagnoses. Pt has demonstrated improvement in condition with regard to improvement in mood, resolution of SI, involvement of family in discharge and safety planning, and medication adjustments. At this time, patient is requesting discharge and is no longer considered to be at acute risk of harm to himself. Pt will be discharged with recommendation for ongoing outpatient psychiatric treatment. 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 Relationships: Yes (Parents) Supportive Family: Yes Tobacco Cessation at Discharge Tobacco Cessation Medication Prescribed at Discharge: Not Applicable/Non-Smoker Total Time Total Time Spent: Greater Than 30 Minutes Total Time Includes: Examination of the patient, Discharge Planning, Medication Reconciliation and Communication with other providers Discharge Data Lab Results 02/02/19 02/02/19 02/02/19 21:00 21:00 21:22 WBC 7.77 RBC 4.55 L Hgb 14.3 Hct 41.8 L MCV 91.9 MCH 31.4 MCHC 34.2 RDW Std Deviation 43.2 RDW Coeff of Lc 12.9 Plt Count 230 MPV 9.9 Immature Gran % (Auto) 0.1 Neut % (Auto) 46.9 Lymph % (Auto) 42.9 Sully % (Auto) 8.8 Eos % (Auto) 1.0 Baso % (Auto) 0.3 Immature Gran # (Auto) 0.01 Neut # (Auto) 3.65 Lymph # (Auto) 3.33 Sully # (Auto) 0.68 H Eos # (Auto) 0.08 Baso # (Auto) 0.02 Sodium Potassium Chloride Carbon Dioxide Anion Gap BUN Creatinine Est Cr Clr Drug Dosing Est GFR ( Amer) Est GFR (Non-Af Amer) BUN/Creatinine Ratio Glucose Fasting Glucose Calcium Total Bilirubin AST ALT Alkaline Phosphatase Total Protein Albumin Globulin Albumin/Globulin Ratio Triglycerides Cholesterol LDL Cholesterol, Calc VLDL Cholesterol, Calc HDL Cholesterol Cholesterol/HDL Ratio TSH Specimen Hemolysis Urine Color Dark Yellow Urine Appearance Clear Urine pH 7.0 Ur Specific [place] 1.027 Urine Protein Negative Urine Glucose (UA) Negative Urine Ketones Trace H Urine Blood Negative Urine Nitrite Negative Urine Bilirubin Negative Urine Urobilinogen Negative Ur Leukocyte Esterase Negative Salicylates Urine Opiates Screen Neg Ur Methadone, Qual Neg Acetaminophen Urine Barbiturates Neg Ur Phencyclidine (PCP) Neg U Amphetamin/Meth Scrn Neg MDMA (Ecstasy) Screen Neg U Benzodiazepines Scrn Neg Ur Cocaine Metabolite Neg U Marijuana (THC) Screen Neg Ethyl Alcohol mg/dL 02/02/19 02/02/19 02/02/19 21:22 21:22 21:22 WBC RBC Hgb Hct MCV MCH MCHC RDW Std Deviation RDW Coeff of Lc Plt Count MPV Immature Gran % (Auto) Neut % (Auto) Lymph % (Auto) Sully % (Auto) Eos % (Auto) Baso % (Auto) Immature Gran # (Auto) Neut # (Auto) Lymph # (Auto) Sully # (Auto) Eos # (Auto) Baso # (Auto) Sodium 140 Potassium 3.8 Chloride 104 Carbon Dioxide 29 Anion Gap 7.0 BUN 9 Creatinine 1.01 Est Cr Clr Drug Dosing 112.7 Est GFR ( Amer) 111.2 Est GFR (Non-Af Amer) 95.9 BUN/Creatinine Ratio 8.6 L Glucose 106 H Fasting Glucose Calcium 9.3 Total Bilirubin 0.2 AST 36 ALT 61 Alkaline Phosphatase 76 Total Protein 8.3 H Albumin 4.3 Globulin 4.0 Albumin/Globulin Ratio 1.1 Triglycerides Cholesterol LDL Cholesterol, Calc VLDL Cholesterol, Calc HDL Cholesterol Cholesterol/HDL Ratio TSH 0.762 Specimen Hemolysis Urine Color Urine Appearance Urine pH Ur Specific [place] Urine Protein Urine Glucose (UA) Urine Ketones Urine Blood Urine Nitrite Urine Bilirubin Urine Urobilinogen Ur Leukocyte Esterase Salicylates < 1.7 L Urine Opiates Screen Ur Methadone, Qual Acetaminophen < 2 L Urine Barbiturates Ur Phencyclidine (PCP) U Amphetamin/Meth Scrn MDMA (Ecstasy) Screen U Benzodiazepines Scrn Ur Cocaine Metabolite U Marijuana (THC) Screen Ethyl Alcohol mg/dL < 3.0 02/04/19 06:58 WBC RBC Hgb Hct MCV MCH MCHC RDW Std Deviation RDW Coeff of Lc Plt Count MPV Immature Gran % (Auto) Neut % (Auto) Lymph % (Auto) Sully % (Auto) Eos % (Auto) Baso % (Auto) Immature Gran # (Auto) Neut # (Auto) Lymph # (Auto) Sully # (Auto) Eos # (Auto) Baso # (Auto) Sodium Potassium Chloride Carbon Dioxide Anion Gap BUN Creatinine Est Cr Clr Drug Dosing Est GFR ( Amer) Est GFR (Non-Af Amer) BUN/Creatinine Ratio Glucose Fasting Glucose 93 Calcium Total Bilirubin AST ALT Alkaline Phosphatase Total Protein Albumin Globulin Albumin/Globulin Ratio Triglycerides 203 H Cholesterol 220 H LDL Cholesterol, Calc 147 VLDL Cholesterol, Calc 41 HDL Cholesterol 32 Cholesterol/HDL Ratio 7 TSH Specimen Hemolysis Urine Color Urine Appearance Urine pH Ur Specific [place] Urine Protein Urine Glucose (UA) Urine Ketones Urine Blood Urine Nitrite Urine Bilirubin Urine Urobilinogen Ur Leukocyte Esterase Salicylates Urine Opiates Screen Ur Methadone, Qual Acetaminophen Urine Barbiturates Ur Phencyclidine (PCP) U Amphetamin/Meth Scrn MDMA (Ecstasy) Screen U Benzodiazepines Scrn Ur Cocaine Metabolite U Marijuana (THC) Screen Ethyl Alcohol mg/dL Hospital Course (1) MDD (major depressive disorder): 01/26/2019 -Patient admitted on a voluntary status on suicide checks to the locked environment of the behavioral health unit -He will be expected to participate in unit programming as appropriate -Patient will require outpatient psychotherapy and psychiatric referrals prior to discharge -Guns are locked and have been secured by parents at home -As Celexa and Lexapro have been insufficiently effective, will reduce Lexapro to 10 mg tonight and then discontinue and substitute Zoloft titration as alternative. He will start Zoloft 25 mg today, 50 mg tomorrow, then 100 mg daily and will continue titration ending indication and tolerability. Common risks and benefits of the SSRI were reviewed and patient accepted the intervention. -As he perceives historically some therapeutic benefit from the Abilify augmentation will defer any changes to that for the time being. Lab order for fasting lipid pane and glucose for metabolic monitoring on atypical antipsychotic. Aims 0 today -Psychoeducation provided regarding possibility of underlying mild cyclic mood disorder. For mood augmentation, discussed risks and benefits of Lamictal titration which may help with some of his emotional reactivity as well. This included discussion of risk for Bear-Angel syndrome and need for regular medication compliance. Patient was agreeable and will start Lamictal 25 mg nightly titrating in the standard fashion 02/04 -Patient describing a dramatic improvement in mood and hopefulness following admission. Probably cannot overvalue the importance of feeling accepted and having an opportunity for some validation outside of his immediate family which was illuminated to him and appeared to resonate -Will complete the antidepressant cross taper with discontinuation of Lexapro and increase of Zoloft to 100 mg tomorrow morning -Reviewed mildly elevated total cholesterol and triglycerides. Advised dietary modification and follow-up with PCP. He does have a family history of dyslipidemia in his father. (2) Suicidal ideations: 02/03/2019 -As above, patient admitted on suicide checks to the controlled environment of the behavioral health unit where he will receive pharmacotherapy and psychotherapy. At time of admission he denies intent for self-harm and able to convincingly contract for safety in the hospital however he is not able to contract for safety outside of the hospital. -He identifies his family, particularly his mother, as strongly protective against self injury. He has no history of self-harm but does have a history of one instance of para suicidal behavior 02/04 -Denies suicidal ideation today (3) Generalized anxiety disorder: 02/03/2019 -Mixed anxiety symptomatology with free-floating excessive worry, features of social anxiety and panic attacks -Zoloft trial as above -May get some benefit from the Lamictal titration off label 02/04 -Anxiety showing some interval improvement today -He does have access to his home dose of Ativan prn which he has not used Mental Health & Subst Abuse Tx Psychiatrist Name of Psychiatrist: [facility] Psychiatrist's Date of Appointment with Psychiatrist: 02/22/19 Time of Appointment with Psychiatrist: 9:45am Psychiatric Appointment Comment: [address], [place] [address] Psychiatrist Release of Information: Obtained, Reviewed and Signed Therapist Name of Therapist: Rigo Scott LPC Therapist's Date of Therapist Appointment: 02/22/19 Time of Therapist Appointment: 1 pm Therapy Appointment Comment: [address] [place] [address] Therapist Release of Information: Obtained, Reviewed and Signed Hydrology Teacher Name of Hydrology Teacher: none Post Discharge Appointments Primary Care Physician Name Of Family Doctor: Giovanni Zeng Primary Care Time of Appointment with PCP: Follow up as needed. Provider Appointment Comment: [address], [place] [address] Primary Care Release of Information: Obtained, Reviewed and Signed Smoking Cessation Counseling Tobacco Cessation Medication Prescribed at Discharge: Not Applicable/Non-Smoker Contact Information Discharge Discharge [address]: [address] [place] [id number] Discharge Plan Discharge Items Patient Disposition: Home - Self-Care Reason For Visit: DEPRESSION Discharge Diagnosis: Depression, Anxiety Condition on Discharge: Good Activity: Resume your previous activity Non-emergency contact: Primary Care Provider, Psychiatrist and Therapist Call non-emergency contact if: you have any medication questions and your symptoms worsen Follow-up/Referrals: Tony Zeng, [Primary Care Provider] - Diet: Regular Addtl Attending Provider Instructions: SPECIAL CARE INSTRUCTIONS: 1. Follow through with your scheduled aftercare appointments. If unable to keep an appointment, please call to reschedule. 2. Take your medication only as prescribed. Medication should not be changed or stopped without the approval of your doctor. In the event of worsening symptoms or concerns about side effects, contact your doctor immediately. 3. Utilize new healthy coping skills, anger management skills, and stress management skills learned during your hospitalization. Journal feelings and process them with a support person. Identify stressors or situations that may result in relapse, deterioration or inappropriate behaviors and develop a plan to deal with those issues. 4. If your coping skills are ineffective and you are in crisis, contact your outpatient providers for direction. If unable to reach your providers, please call the CAN HELP LINE AT or go to the closest Emergency Room. 5. Avoid alcohol and un-prescribed drugs. 6. You have been provided with the Mental Health Advance Directives Pamphlet for your review. AFTERCARE APPOINTMENTS: * Please call your insurance company prior to your scheduled appointment to confirm your aftercare providers are covered. Take your insurance information to your appointments. WHO TO CALL AND WHEN: Medical Emergencies: For questions or emergencies related to your hospital stay, please contact the Inpatient Behavioral Health Unit at [phone]. A psychiatric nurse is on-call 29/11 for the Behavioral Health Unit for emergencies At any time you feel your situation is an emergency, you may also call 911 immediately. Your Doctors Instructions noted above were prepared by provider Donna Guy PA-C. Pending Studies at Discharge: No Stand-Alone Forms: My [facility] Medications and DC Order Prescriptions: New sertraline 100 mg Tablet 100 mg PO QAM 30 Days Qty: 30 RF: 0 lamotrigine 25 mg tablet 25 mg PO HS 30 Days Qty: 96 RF: 0 Continued aripiprazole 5 mg tablet 5 mg PO HS RF: 0 lorazepam 1 mg Tablet 1 mg PO TID PRN (Reason: Anxiety) RF: 0 Discontinued escitalopram oxalate 20 mg tablet 20 mg PO HS RF: 0 Discharge Orders: Discharge Order (Routine); Ordered 02/05/19 Ordered By: Donna Guy Admission Data Admit Date/Time: 02/02/19 23:38 Attending Provider: Lucas Elizalde Admit Provider: Lucas Elizalde Primary Care Provider: Tony Zeng Other Interventions: Discharge Summary Assessment (RN) Last Done: 02/05/19 13:26 PSY Interdisciplinary Discharge Planning Last Done: 02/05/19 13:52 DC Date/Time DO NOT enter until pt leaves facility: 02/05/19 14:44
== END 2019-02-05 14:44 | disposition home or self-care (01) | DRG 880 ==
LOC: ED 20:51 → 3S 23:38